=== PATIENT | male | born 1965 | race Caucasian/White ===

== ENCOUNTER 2016-11-12 17:43 | Emergency (ER) | payer SELFPAY ==
[2016-11-12 18:35] VITALS: BP 166/90
--- NOTE | 2016-11-12 19:33 | ERNOTE ---
Medical Problem HPI - Narrative Date of Service: 11/12/16 - General Chief Complaint: Flu Symptoms Time Seen by Provider: 11/12/16 19:30 - Immun/Allergies/Home Medications Immunizations: IMMUNIZATION HX History of Influenza Vaccine No Hx Pneumococcal Vaccination No Allergies/Adverse Reactions: Allergies No Known Allergies Allergy (Verified 11/12/16 18:35) Home Medications: HOME MEDICATIONS metFORMIN HCL [Glucophage Xr] 750 mg PO BID 03/07/16 [Last Taken Unknown] Allopurinol [Zyloprim (Allopurinol)] 100 mg PO DAILY 11/12/16 [Last Taken Unknown] Lisinopril [Zestril] 20 mg PO 11/12/16 [Last Taken Unknown] Metoprolol Tartrate [Lopressor] 50 mg PO BID 11/12/16 [Last Taken Unknown] - Patient's Past Medical History Patient History - Medical: Diabetes Type 2, Other Patient History - Cardiac/Respiratory: Hypertension, Sleep Apnea Patient History - Cancer: No Hx of Cancer Patient History - Surgical Procedures: Other Patient History - Other: None - Social History Living Situations: home Abuse History: No History of abuse Psych History: No pertinent hx Smoking Status: Former smoker Have you smoked in the past 12 months: No Do you dip or chew tobacco: Yes Alcohol Use: occasionally Drug Use: none - Immunizations Hx Pneumococcal Vaccination: No History of Influenza Vaccine: No ED Progress - Date and Time Seen: Date and Time: 11/12/16 19:32 PT WALKED OUT TO THE CAR WHILE I WAS EXAMINING HIS . SHE IS GOING TO GET HIM TO BRING HIM BACK , SHE SAYS. 11/12/16 20:52 PT NEVER DID RETURN FOR H & P . HE DID HAVE + INFL. A SCREEN AND NEG STREP. - Results and Orders Patient's Lab Results:: I have reviewed the patient's lab results. Results and Orders: INFLUENZA = POSITIVE - Vital Signs Vital Signs: Vital Signs 11/12/16 18:24 Temperature 37.9 C H Pulse Rate 96 Respiratory 18 Rate Blood Pressure 166/90 O2 Sat by Pulse 95 Oximetry - Progress/Reassessment Chief Complaint: Flu Symptoms Departure - Departure Clinical Impression: Influenza A Disposition: Against medical advice Referrals: Danielle Simon MD [Primary Care Provider] -
--- OUTSIDE RECORDS SUMMARY | 2016-11-12 19:39 | XMS REPORT | Continuity of Care Document ---
:1965 Author Organization [facility] ([facility]) Address [address] [place] [address] Phone [phone] Care Team Providers Name Role Phone Unavailable Primary Care Provider Unavailable Source Comments This disclosure is being made pursuant to the Care Everywhere program, applicable federal and state laws, and may not contain all informaitonavailable regarding this patient.[facility] ([facility]) Active Allergies and Adverse Reactions Not on File Current Medications Not on file Active Problems Not on file Social History Tobacco Use Types Packs/Day Years Used Date Never Assessed Plan of Care Health Maintenance Due Date Last Done Comments HCV Screening 1965 Hepatitis B Vaccine (1 of 3 - Primary Series) 1965 Tdap Vaccine 1976 Lipid Disorder Screening 1983 MMR Vaccine 1983 Td Vaccine 1983 Colonoscopy 2015 Prostate Cancer Screening 2015 Influenza Vaccine: Seasonal (#1) 04/26/2016 Results from Last 3 Months Not on file
== END 2016-11-12 19:30 | disposition left against medical advice (07) ==
LOC: ER 17:43
DX: Z53.21 Procedure and treatment not carried out due to patient leaving prior to being seen by health care provider (principal)